=== PATIENT | female | born 1930 | race Caucasian/White ===

== ENCOUNTER 2018-08-25 12:14 | Inpatient (IN) ==
[2018-08-25] MEDS ORDERED: Morphine Sulfate Inj 2 MG/ML Vial IV.PUSH ONE (13:09)
[2018-08-25] MEDS ORDERED: Sodium Chlor 0.9% Inj 500 ML IV.SIG ONE (13:11)
--- NOTE | 2018-08-25 13:16 | ED ---
HPI General Chief Complaint: Fall Stated Complaint: fall Time Seen by Provider: 08/25/18 13:01 Source: patient Limitations: no limitations History of Present Illness HPI Narrative: 88-year-old female with PMH of HTN, HLD, a fib, pacemaker, implanted bladder stimulator, on Coumadin presents the ED via private vehicle for evaluation after fall. The patient states that she tripped while getting off a step stool in her kitchen, fell on her left hip, landing on a tile floor. She endorses hitting her head on a plastic bucket that was sitting nearby. She denies loss of consciousness. She has not been ambulatory since the accident. On presentation she complains of pain in the left hip. Pain is sharp and 10/10 with any attempted range of motion. Improved to 0/10 by immobility. The patient denies headache, dizziness, vision changes, chest pain , shortness of breath, nausea, vomiting. She denies previous injury to the left hip. Two friends helped the patient into the car. No treatment attempted before arrival. Related Data Home Medications Medication Instructions Recorded Confirmed amlodipine 5 mg PO DAILY 08/25/18 08/25/18 atorvastatin 20 mg PO DAILY 08/25/18 08/25/18 carvedilol 12.5 mg PO BID 08/25/18 08/25/18 enalapril maleate 20 mg PO BID 08/25/18 08/25/18 warfarin 5 mg PO DAILY 08/25/18 08/25/18 Allergies Allergy/AdvReac Type Severity Reaction Status Date / Time Sulfa (Sulfonamide Allergy Severe Rash Verified 08/25/18 14:23 Antibiotics) Review of Systems ROS: all other systems reviewed are negative PMFSH Medical History Medical History Afib (Acute) H/O: hysterectomy (Acute) High cholesterol (Acute) Hypertension (Acute) Pacemaker (Acute) Social History Social History Smoking Status: Former smoker How Often Do You Have a Drink Containing Alcohol: 4 or more times a week Recent Out of Country Travel within the Last 8 Weeks: No Immunization History Tetanus Immunization: <5 Years Exam Narrative Exam Narrative: GENERAL: Well-nourished, well-developed white female in no acute distress. Sitting up in the stretcher, chatting with a visitor at bedside. SKIN: Warm and dry. Thorough evaluation reveals no edema, ecchymosis, abrasion , or laceration of the skin. HEAD: Normocephalic. Atraumatic. No raccoon eyes or berman sign. No tenderness to palpation of the skull. No bony step-offs. No malocclusion of the teeth. EYES: No scleral icterus. No injection or drainage. PERRLA. EOMI. ENT: Hearing aids in place bilaterally. Nasal mucosa is moist. Oropharynx without erythema, edema or exudate. NECK: Supple, trachea midline. No JVD or lymphadenopathy. No midline tenderness to palpation. Patient retains full, active, painless range of motion of the neck. CARDIOVASCULAR: Regular rate and rhythm without murmurs, gallops, or rubs. 2+ DP and radial pulses bilaterally. RESPIRATORY: Breath sounds clear and equal bilaterally. No accessory muscle use. GASTROINTESTINAL: Abdomen soft, non-tender, nondistended. + Bowel sounds FOCUSED LLE: 2+ DP pulse. Tender to palpation of the anterior lateral hip and left groin. Pain elicited with internal and external hip rotation. Remaining ROM hip and knee testing deferred 2/2 pain. Patient is able to wiggle the toes and flex and extend the ankle. Neurovascularly intact distally. MUSCULOSKELETAL: No cyanosis, or edema. No other tenderness to palpation or limitations to range of motion of the joints of the upper and lower extremities bilaterally. NEUROLOGICAL: Awake and alert. Cranial nerves II through XII intact. Motor and sensory grossly within normal limits. 5/5 muscle strength in all muscle groups. Normal speech. BACK: Nontender without obvious deformity. No CVA tenderness. No midline tenderness. Course Initial Documented Vital Signs Temperature 97.2 F L 08/25/18 12:16 Pulse Rate 82 08/25/18 12:16 Respiratory Rate 16 08/25/18 12:16 Blood Pressure 177/74 H 08/25/18 12:16 Pulse Oximetry 98 08/25/18 12:16 Last Documented Vital Signs Temperature 97.2 F L 08/25/18 12:16 Pulse Rate 72 08/25/18 12:36 Respiratory Rate 17 08/25/18 14:28 Blood Pressure 173/91 H 08/25/18 12:36 Pulse Oximetry 98 08/25/18 12:36 Medical Decision Making MDM Narrative Medical decision making narrative: 88-year-old female with PMH of HTN, HLD, a fib, pacemaker, implanted bladder stimulator, on Coumadin presents the ED via private vehicle for evaluation after fall. Patient states that she fell off of a step stool, landing on the tile on her left hip. She did hit her head on a plastic bucket that was nearby but denies loss of consciousness. On presentation this is a pleasant, hard of hearing 88-year-old female in no acute distress. No evidence of trauma of the head. Neurologically intact. She does have tenderness to palpation of the anterolateral left hip and pain with attempted internal and external rotation. Neurovascularly intact distally. IV was established. Patient was administered 2 mg morphine, 4 mg Zofran and 500 mL 's normal saline. X-ray concerning for acute subcapital left hip fracture. Preoperative workup reveals white count of 11.8, hemoglobin 15.5. INR is 2.5. CMP shows mild elevation of the bilirubin at 1.4, otherwise unremarkable. CT of the brain without acute findings. I discussed the findings with the patient as well as the need for intervention by the orthopedist. Patient's agreeable to this plan. I spoke with , sienna. He request transfusion of 2 units of FFP, recheck INR, patient be made n.p.o. at midnight. Will hold Coumadin. I spoke with Dr. Sara Shaw who agrees to accept the patient to the medical service. Please see ortho and medicine notes for disposition. Medical Screen Exam Complete: Yes Emergency Medical Condition: Yes Differential Diagnosis Differential Diagnosis: Fall versus contusion versus fracture versus ICH versus other Lab Data Result diagrams: 08/25/18 14:00 08/25/18 14:00 Lab Results 08/25/18 08/25/18 08/25/18 Range/Units 14:00 14:00 14:00 WBC 11.8 H (4.0-11.0) th/mm3 RBC 4.63 (4.00-5.30) mil/mm3 Hgb 15.5 H (11.6-15.3) gm/dL Hct 44.4 (35.0-46.0) % MCV 95.9 (80.0-100.0) fL MCH 33.6 (27.0-34.0) pg MCHC 35.0 (32.0-36.0) % RDW 13.9 (11.6-17.2) % Plt Count 207 (150-450) th/mm3 MPV 8.4 (7.0-11.0) fL Neut % (Auto) 85.1 H (16.0-70.0) % Lymph % (Auto) 6.7 L (9.0-44.0) % [place] % (Auto) 6.8 (0.0-8.0) % Eos % (Auto) 1.2 (0.0-4.0) % Baso % (Auto) 0.2 (0.0-2.0) % Neut # (Auto) 10.1 H (1.8-7.7) th/mm3 Lymph # (Auto) 0.8 L (1.0-4.8) th/mm3 [place] # (Auto) 0.8 (0.0-0.9) th/mm3 Eos # (Auto) 0.1 (0.0-0.4) th/mm3 Baso # (Auto) 0.0 (0.0-0.2) th/mm3 WBC Differential . Differential Comment Auto diff final PT 25.4 H (9.8-11.6) sec INR 2.5 Ratio APTT 32.9 H (23.4-31.7) sec Sodium (136-145) meq/L Potassium (3.5-5.1) meq/L Chloride (98-107) meq/L Carbon Dioxide (21.0-32.0) meq/L Anion Gap (5-15) meq/L BUN (7-18) mg/dL Creatinine (0.50-1.00) mg/dL Estimated GFR (>89) mL/min Random Glucose (74-106) mg/dL Calcium (8.5-10.1) mg/dL Total Bilirubin (0.2-1.0) mg/dL AST (15-37) U/L ALT (10-53) U/L Alkaline Phosphatase (45-117) U/L Total Protein (6.4-8.2) g/dL Albumin (3.4-5.0) g/dL Blood Type A Positive Blood Type Recheck Required Antibody Screen Negative 08/25/18 Range/Units 14:00 WBC (4.0-11.0) th/mm3 RBC (4.00-5.30) mil/mm3 Hgb (11.6-15.3) gm/dL Hct (35.0-46.0) % MCV (80.0-100.0) fL MCH (27.0-34.0) pg MCHC (32.0-36.0) % RDW (11.6-17.2) % Plt Count (150-450) th/mm3 MPV (7.0-11.0) fL Neut % (Auto) (16.0-70.0) % Lymph % (Auto) (9.0-44.0) % [place] % (Auto) (0.0-8.0) % Eos % (Auto) (0.0-4.0) % Baso % (Auto) (0.0-2.0) % Neut # (Auto) (1.8-7.7) th/mm3 Lymph # (Auto) (1.0-4.8) th/mm3 [place] # (Auto) (0.0-0.9) th/mm3 Eos # (Auto) (0.0-0.4) th/mm3 Baso # (Auto) (0.0-0.2) th/mm3 WBC Differential Differential Comment PT (9.8-11.6) sec INR Ratio APTT (23.4-31.7) sec Sodium 141 (136-145) meq/L Potassium 4.0 (3.5-5.1) meq/L Chloride 108 H (98-107) meq/L Carbon Dioxide 26.9 (21.0-32.0) meq/L Anion Gap 6 (5-15) meq/L BUN 12 (7-18) mg/dL Creatinine 0.83 (0.50-1.00) mg/dL Estimated GFR 65 L (>89) mL/min Random Glucose 86 (74-106) mg/dL Calcium 8.8 (8.5-10.1) mg/dL Total Bilirubin 1.4 H (0.2-1.0) mg/dL AST 30 (15-37) U/L ALT 23 (10-53) U/L Alkaline Phosphatase 59 (45-117) U/L Total Protein 7.4 (6.4-8.2) g/dL Albumin 3.7 (3.4-5.0) g/dL Blood Type Blood Type Recheck Antibody Screen Imaging Data Radiologist's impression: Hip X-Ray 08/25/18 13:09 CONCLUSION: Acute subcapital fracture involving the left proximal femur. Chest X-Ray 08/25/18 13:52 CONCLUSION: 1. Mild perihilar and bibasilar streakiness is noted consistent with mild pulmonary vascular congestion, mild infiltrates and/or scattered atelectasis. 2. Cardiomegaly. 3. Degenerative changes and scoliosis of the thoracic spine. Discharge Plan Discharge Order Discharge Orders: ED Use Only Admit Order (Routine); Ordered 08/25/18 Ordered By: Camille Huerta Physicians Team ED Provider: Freddie Silva ED Midlevel Provider: Camille Huerta Primary Care Provider: Marlon Mejia Attending Provider: Cory Shaw Rxs /Orders / Referrals /Forms Prescriptions: No Action carvedilol 25 mg Tablet 12.5 mg PO BID RF: 0 atorvastatin 20 mg Tablet 20 mg PO DAILY RF: 0 enalapril maleate 20 mg Tablet 20 mg PO BID RF: 0 amlodipine 5 mg Tablet 5 mg PO DAILY RF: 0 warfarin 5 mg Tablet 5 mg PO DAILY RF: 0 Discharge Interventions Interventions: Vital Signs Last Done: 08/25/18 12:36 Status ED Status: Admitted Patient
[2018-08-25] MEDS ORDERED: Morphine Inj 4 MG/ML Vial IV.PUSH ONE (13:53)
--- NOTE | 2018-08-25 14:04 | XR ---
EXAM DATE: 08/25/2018 1:47 PM EST AGE/SEX: 88 years / Female INDICATIONS: Left hip pain. Patient fell off a step today. CLINICAL DATA: This is the patient's initial encounter. Patient reports that signs and symptoms have been present for 1 day and indicates a pain score of 10/10. MEDICAL/SURGICAL HISTORY: None. . Pain stimulator. COMPARISON: No prior exams available for comparison. FINDINGS: There is an acute subcapital fracture involving the left proximal femur. CONCLUSION: Acute subcapital fracture involving the left proximal femur. Electronically signed by: Cory Britton MD Board Certified Radiologist 08/25/2018 2:02 PM EST
--- NOTE | 2018-08-25 14:21 | XR ---
EXAM DATE: 08/25/2018 2:16 PM EST AGE/SEX: 88 years / Female INDICATIONS: Evaluate for communicable diseases, pneumonia, pneumothorax,. Pre-op surgery CLINICAL DATA: This is the patient's initial encounter. Patient reports that signs and symptoms have been present for 1 day and indicates a pain score of 0/10. MEDICAL/SURGICAL HISTORY: Cardiovascular disease. Myocardial infarction. Pacemaker. COMPARISON: POI, XR CHEST PA AND LAT, 07/20/2016. . FINDINGS: The heart is enlarged. Mild perihilar and bibasilar streakiness is noted consistent with mild pulmona ry vascular congestion, mild infiltrates and/or scattered atelectasis. Left subclavian pacemaker wire has its tip in the right ventricle. Degenerative changes and scoliosis of the thoracic spine are not ed. CONCLUSION: 1. Mild perihilar and bibasilar streakiness is noted consistent with mild pulmonary vascular congest ion, mild infiltrates and/or scattered atelectasis. 2. Cardiomegaly. 3. Degenerative changes and scoliosis of the thoracic spine. Electronically signed by: Cory Britton MD Board Certified Radiologist 08/25/2018 2:20 PM EST
[2018-08-25 14:28] LABS: Baso % (Auto) 0.2 % (0.0-2.0); Eos # (Auto) 0.1 th/mm3 (0.0-0.4); Eos % (Auto) 1.2 % (0.0-4.0); Hematocrit 44.4 % (35.0-46.0); Hemoglobin 15.5 gm/dL (11.6-15.3); Lymph # (Auto) 0.8 th/mm3 (1.0-4.8); Lymph % (Auto) 6.7 % (9.0-44.0); Mean Corpuscular Hemoglobin 33.6 pg (27.0-34.0); Mean Corpuscular Volume 95.9 fL (80.0-100.0); Mean Platelet Volume 8.4 fL (7.0-11.0); Mono # (Auto) 0.8 th/mm3 (0.0-0.9); Mono % (Auto) 6.8 % (0.0-8.0); Neut # (Auto) 10.1 th/mm3 (1.8-7.7); Neut % (Auto) 85.1 % (16.0-70.0); Platelet Count 207 th/mm3 (150-450); Red Blood Count 4.63 mil/mm3 (4.00-5.30); Red Cell Distribution Width 13.9 % (11.6-17.2); White Blood Count 11.8 th/mm3 (4.0-11.0)
[2018-08-25 14:47] LABS: Activated Partial Thrombo Time 32.9 sec (23.4-31.7); Alanine Aminotransferase 23 U/L (10-53); Albumin 3.7 g/dL (3.4-5.0); Anion Gap 6 meq/L (5-15); Aspartate Aminotransferase 30 U/L (15-37); Blood Urea Nitrogen 12 mg/dL (7-18); Calcium 8.8 mg/dL (8.5-10.1); Carbon Dioxide 26.9 meq/L (21.0-32.0); Chloride 108 meq/L (98-107); Glomerular Filtration Rate 65 mL/min (>89); Glucose,Random 86 mg/dL (74-106); INR 2.5 Ratio; Prothrombin Time 25.4 sec (9.8-11.6); Sodium 141 meq/L (136-145)
[2018-08-25 14:50] LABS: Alkaline Phosphatase 59 U/L (45-117); Total Protein 7.4 g/dL (6.4-8.2)
[2018-08-25 15:48] LABS: Bilirubin,Urine Negative (Negative); Clarity,Urine Clear (Clear); Color,Urine Yellow (Yellw/Straw); Glucose,Urine (UA) Negative (Negative); Leukocyte Esterase,Urine Negative (Negative); Nitrite,Urine Negative (Negative); Specific Gravity,Urine 1.011 (1.002-1.035)
--- NOTE | 2018-08-25 15:53 | CT ---
EXAM DATE: 08/25/2018 3:45 PM EST AGE/SEX: 88 years / Female INDICATIONS: Trauma, fell off step stool. CLINICAL DATA: This is the patient's initial encounter. Patient reports that signs and symptoms have been present for 1 day and indicates a pain score of 6/10. MEDICAL/SURGICAL HISTORY: Hypertension. Afib. Hysterectomy. RADIATION DOSE: 56.35 CTDI (mGy) COMPARISON: No prior exams available for comparison. TECHNIQUE: CT of the head without contrast. Using automated exposure control and adjustment of the mA and/or kV according to patient size, radiation dose was kept as low as reasonably achievable to ob tain optimal diagnostic quality images. DICOM format image data is available electronically for revi ew and comparison. FINDINGS: There is no evidence for intracranial hemorrhage, mass effect, mass lesions, edema, or extra-axial fl uid collections. The visualized bony structures appear intact. The ventricles are normal size for t he patient's age. There are no signs of acute infarction for technique. There is slight fat collect ion adjacent to the anterior falx 2 separate areas. CONCLUSION: Unremarkable study. Electronically signed by: Adeola Wolfe MD Board Certified Radiologist 08/25/2018 3:52 PM EST
[2018-08-25] MEDS ORDERED: Acetaminophen 325 MG Tablet PO PRN (16:29)
[2018-08-25] MEDS ORDERED: Bisacodyl 10 MG Supp RECTAL PRN (16:29)
--- NOTE | 2018-08-25 16:34 | P.CONOP ---
[facility] Orthopedics Consult Note - [facility] Consult date: 08/25/18 Chief complaint: Left hip fracture Narrative: This patient is an 88-year-old female who has a past medical history of hypertension, diabetes, hyperlipidemia, atrial fibrillation, pacemaker implantation, who is on Coumadin who presented to [facility] after she had a fall when she tripped getting off of a step stool in her kitchen. She noticed immediate pain about the left hip and had significant pain that she could not ambulate or stand. Her pain was 10 out of 10. It was improved with immobility. The patient presented to [place] and was found to have an impacted femoral neck fracture. I was called and we discussed the medical history with the nurse and we recommended reversal of her Coumadin. She takes Coumadin for her atrial fibrillation. She does follow-up with a review nurse routinely. Prior to this fall she had an episode of pain around the hip and this was treated with a cortisone injection by the primary care physician and she did well with this. She states that she lives alone and she does not require assistive devices for ambulation. Family history is positive for diabetes in the daughter. Note that the daughter is at the bedside. Review of Systems All other systems reviewed negative except as stated in [facility] PMFSH - History History Provided By: Patient - Medical History Medical History: Medical History (Last Reviewed 08/25/18 @ 16:29 by Anders Iraheta MD) Afib H/O: hysterectomy High cholesterol Hypertension Pacemaker - Social History I have reviewed the patient's Social History: Yes - Tobacco History Smoking Status: Former smoker - Alcohol History How Often Do You Have a Drink Containing Alcohol: 4 or more times a week - Travel History Recent Travel Out of the Country Within the Last 8 Weeks: No - Immunization History Tetanus Immunization: <5 Years Medications and Allergies Active Medications: Active Medications Sodium Chloride (Ns Flush) 2 ml IV.FLUSH UNSCH PRN PRN Reason: FLUSH AFTER USING IV ACCESS Allergies Allergy/AdvReac Type Severity Reaction Status Date / Time Sulfa (Sulfonamide Allergy Severe Rash Verified 08/25/18 14:23 Antibiotics) Home Medications Medication Instructions Recorded Confirmed Type amlodipine 5 mg PO DAILY 08/25/18 08/25/18 History atorvastatin 20 mg PO DAILY 08/25/18 08/25/18 History carvedilol 12.5 mg PO BID 08/25/18 08/25/18 History enalapril maleate 20 mg PO BID 08/25/18 08/25/18 History warfarin 5 mg PO DAILY 08/25/18 08/25/18 History Exam Vital signs: Vital Signs 08/25/18 12:16 08/25/18 12:36 08/25/18 14:28 Temperature 97.2 F L Pulse Rate 82 72 Respiratory Rate 16 17 17 Blood Pressure 177/74 H 173/91 H Pulse Oximetry 98 98 Intake & Output 08/24/18 08/25/18 08/25/18 18:59 06:59 18:59 Intake Total 500 / 500 Balance 500 / 500 Weight 58.967 kg Intake: IV 500 / 500 NS Inj 500 ML @ Wide Open IV. 500 / 500 SIG BOLUS ONE Rx#:[id number] Narrative: GENERAL: The patient is awake, alert and oriented x3. The patient is no significant distress. Her daughter is at the bedside PSYCHIATRIC: Normal affect, insight, and judgment. HEENT: Head is atraumatic. Oropharynx is moist. Extraocular muscles are intact. NECK: Non-tender and supple. LUNGS: No audible wheezing. He has normal inspiratory effort with no signs of dyspnea HEART: Irregular rate and rhythm. ABDOMEN: Soft, nontender, and nondistended. BACK: No CVA tenderness. EXTREMITIES/SKIN/NEURO/VASCULAR: The left hip has some minimal shortening. There is no significant swelling about the hip. There were no wounds anterior or laterally. The compartments were soft. Her calf has no tenderness. She may have some trace edema about the bilateral lower extremities. She has good pulses distally in both feet. The bilateral upper extremities have good active range of motion with no tenderness about the bony prominences. Results - Labs Result Diagrams: 08/25/18 14:00 08/25/18 14:00 Labs: Laboratory Results - last 24 hr 08/25/18 08/25/18 08/25/18 14:00 14:00 14:00 WBC 11.8 H RBC 4.63 Hgb 15.5 H Hct 44.4 MCV 95.9 MCH 33.6 MCHC 35.0 RDW 13.9 Plt Count 207 MPV 8.4 Neut % (Auto) 85.1 H Lymph % (Auto) 6.7 L [place] % (Auto) 6.8 Eos % (Auto) 1.2 Baso % (Auto) 0.2 Neut # (Auto) 10.1 H Lymph # (Auto) 0.8 L [place] # (Auto) 0.8 Eos # (Auto) 0.1 Baso # (Auto) 0.0 WBC Differential . Differential Comment Auto diff final PT 25.4 H INR 2.5 APTT 32.9 H Sodium Potassium Chloride Carbon Dioxide Anion Gap BUN Creatinine Estimated GFR Random Glucose Calcium Total Bilirubin AST ALT Alkaline Phosphatase Total Protein Albumin Urine Color Urine Clarity Urine pH Ur Specific [place] Urine Protein Urine Glucose (UA) Urine Ketones Urine Occult Blood Urine Nitrate Urine Bilirubin Urine Urobilinogen Ur Leukocyte Esterase Ur Microscopic Review Blood Type A Positive Blood Type Recheck Required Antibody Screen Negative 08/25/18 08/25/18 14:00 15:00 WBC RBC Hgb Hct MCV MCH MCHC RDW Plt Count MPV Neut % (Auto) Lymph % (Auto) [place] % (Auto) Eos % (Auto) Baso % (Auto) Neut # (Auto) Lymph # (Auto) [place] # (Auto) Eos # (Auto) Baso # (Auto) WBC Differential Differential Comment PT INR APTT Sodium 141 Potassium 4.0 Chloride 108 H Carbon Dioxide 26.9 Anion Gap 6 BUN 12 Creatinine 0.83 Estimated GFR 65 L Random Glucose 86 Calcium 8.8 Total Bilirubin 1.4 H AST 30 ALT 23 Alkaline Phosphatase 59 Total Protein 7.4 Albumin 3.7 Urine Color Yellow Urine Clarity Clear Urine pH 6.0 Ur Specific [place] 1.011 Urine Protein Negative Urine Glucose (UA) Negative Urine Ketones Trace H Urine Occult Blood Negative Urine Nitrate Negative Urine Bilirubin Negative Urine Urobilinogen Less than 2 Ur Leukocyte Esterase Negative Ur Microscopic Review Not Reportable Blood Type Blood Type Recheck Antibody Screen INR is 2.5 - Diagnostic results Imaging: Impressions Head CT 08/25/18 13:09 CONCLUSION: Unremarkable study. Hip X-Ray 08/25/18 13:09 CONCLUSION: Acute subcapital fracture involving the left proximal femur. I have reviewed the images for this radiology study. I agree with the interpretation given by the radiologist. Chest X-Ray 08/25/18 13:52 CONCLUSION: 1. Mild perihilar and bibasilar streakiness is noted consistent with mild pulmonary vascular congestion, mild infiltrates and/or scattered atelectasis. 2. Cardiomegaly. 3. Degenerative changes and scoliosis of the thoracic spine. Assessment and Plan - Assessment and Plan 88-year-old female with history of atrial fibrillation status post fall with left hip nondisplaced valgus impacted femoral neck fracture. We discussed that this is a serious condition effecting this patient's extremity. Nonoperative and operative options were discussed and reviewed. Potential consequences of both of these options were reviewed. I would recommend surgical management for this condition. Nonoperative management does have significant chance of displacement of the fracture which ultimately would lead to the need to have a much more extensive surgery such as a hip replacement. We did discuss that sometimes with closed reduction and percutaneous screw fixation there can be complications such as displacement of the hardware, avascular necrosis, or continued pain or migration of the hardware which could require further surgery such as removal of screws and conversion to hip replacement. The patient is currently on Coumadin with an INR of 2.5 because of her atrial fibrillation. I have discussed with the admitting physician and also with the ER nurse that I would recommend reversal of the anticoagulation with FFP. Postoperatively I would expect that the patient would be able to go back onto her Coumadin for DVT prophylaxis and for her atrial fibrillation. The patient would like to move forward with urgent surgical management for this condition. The surgery will consist of a left hip closed reduction and percutaneous screw fixation. This is surgery should be considered non-elective , given that this patient presented emergently to the hospital, and the decision to proceed with surgery was derived from this presentation. Significantly delaying surgery (other than for medical clearance) has the potential to adversely effect the outcome for this patient's extremity. Management of pain associated with surgery will likely require the use of parental controlled substances. The risks and benefits of surgical management have been discussed in detail. The risks of surgery include, but are not limited to, injury to nerves, blood vessels, bleeding, infection, non-healing; loss of range on motion, dysfunction or weakness of the associated joints; blood clots, pneumonia, stroke, heart attack, and . - Attending Attestation Attending Attestation: A mid level provider in my office, nurse practitioner or PA, may see this patient on a follow up basis and continue to implement the plan including: starting or adjusting medications, injections of muscle, tendons, bursa or joints, cast application, orthotic or brace application, physical therapy, further radiographic studies including X-ray, MRI, CT, ultrasound or bone scan , vascular studies, neurological studies, or other specialist consultations, and proceeding with surgical management as appropriate.
--- NOTE | 2018-08-25 16:47 | P.HPIM ---
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 Patient reports that she was cleaning her home standing on a step stool when she lost her balance and fell. Patient denied prodromal symptoms of chest pain, shortness of breath, palpitations, nausea, diaphoresis, headache, dizziness, vision change, or acute issue prior to the fall. Patient reports that she fell and hit her buttocks and her left side of her hip. Patient also reports that she slightly hit her head on a plastic wash basin when she fell. Patient denied seizure history. Fall was unwitnessed at the time but daughter was present to provide some collateral of events leading to hospitalization. In emergency department patient underwent hip x-ray which showed acute subcapital fracture involving the left proximal femur. Orthopedics was consulted. Medicine consulted as well. Patient INR found to be 2.5. History as per patient. Allergies: Sulfur (patient unsure of exact reaction as she had the medication many years ago was ( Social history: Retired, former smoker of 1 pack/day quit in 1955 smoked for less than 10 years, drinks 1 glass of wine occasionally with television, lives alone in her residence. Family history: Noncontributory Medications: Coumadin 5 mg daily, Coreg 12.5 mg twice daily, amlodipine 5 mg daily, enalapril 20 mg every 12 hours, atorvastatin 20 mg at bedtime Surgical history: Hysterectomy, bladder stimulator, permanent pacemaker status post bradycardia, bladder lift, vaginal polyp removal Diagnosis (1) Atrial fibrillation: (2) Hip fracture: (3) Pacemaker: Inpatient Certification Inpatient Certification: I certify that the inpatient services were ordered in accordance with Medicare regulations governing the order. This includes certification that hospital inpatient services are reasonable and necessary and in the case of services not specified as inpatient-only under 42 CFR 419.22(n), that they are appropriately provided as inpatient services in accordance to with the 2-midnight benchmark under 43 CFR 412.3(e) Estimated Total Length of Stay (Days): 3 Plans for Post Hospital Care: Not yet determined Review of Systems Review of Systems: all other systems reviewed are negative PMFSH Medical History Medical History Afib (Acute) H/O: hysterectomy (Acute) High cholesterol (Acute) Hypertension (Acute) Pacemaker (Acute) Social History Social History Smoking Status: Former smoker How Often Do You Have a Drink Containing Alcohol: 4 or more times a week Recent Out of Country Travel within the Last 8 Weeks: No Immunization History Tetanus Immunization: <5 Years Medications and Allergies Allergies Allergy/AdvReac Type Severity Reaction Status Date / Time Sulfa (Sulfonamide Allergy Severe Rash Verified 08/25/18 14:23 Antibiotics) Home Medications Medication Instructions Recorded Confirmed Type amlodipine 5 mg PO DAILY 08/25/18 08/25/18 History atorvastatin 20 mg PO DAILY 08/25/18 08/25/18 History carvedilol 12.5 mg PO BID 08/25/18 08/25/18 History enalapril maleate 20 mg PO BID 08/25/18 08/25/18 History warfarin 5 mg PO DAILY 08/25/18 08/25/18 History Active Medications: Active Medications Acetaminophen (Tylenol) 650 mg PO Q4H PRN PRN Reason: Temp > 100.4 Al Hydroxide/Mg Hydroxide (Milk Of Magnesia Liq) 30 ml PO Q12H PRN PRN Reason: Mild Constipation Bisacodyl (Dulcolax Supp) 10 mg RECTAL DAILY PRN PRN Reason: SEVERE CONSITIPATION Furosemide (Lasix Inj) 40 mg IV.PUSH ONCE ONE Stop: 08/25/18 16:33 Lactulose (Lactulose Liq) 30 ml PO DAILY PRN PRN Reason: SEVERE CONSITIPATION Ondansetron HCl (Zofran Inj) 4 mg IV.PUSH Q6H PRN PRN Reason: NAUSEA OR VOMITING Senna/Docusate Sodium (Flores-Colace) 1 tab PO BID SABINE Sennosides (Senokot) 17.2 mg PO Q12H PRN PRN Reason: Moderate Constipation Sodium Chloride (Ns Flush) 2 ml IV.FLUSH UNSCH PRN PRN Reason: FLUSH AFTER USING IV ACCESS Sodium Chloride (Ns Flush) 2 ml IV.FLUSH PRN PRN PRN Reason: FLUSH AFTER USING IV ACCESS Sodium Chloride (Ns Flush) 2 ml IV.FLUSH BID SABINE Physical Exam Vital signs: Vital Signs 08/25/18 12:16 08/25/18 12:36 08/25/18 14:28 Temperature 97.2 F L Pulse Rate 82 72 Respiratory Rate 16 17 17 Blood Pressure 177/74 H 173/91 H Pulse Oximetry 98 98 Intake & Output 08/24/18 08/25/18 08/25/18 18:59 06:59 18:59 Intake Total 500 / 500 Balance 500 / 500 Weight 58.967 kg Intake: IV 500 / 500 NS Inj 500 ML @ Wide Open IV. 500 / 500 SIG BOLUS ONE Rx#:[id number] general: No acute distress, conversational HEENT: EOMI Cardiovascular: S1/S2. No murmur noted. Irregularly irregular Respiratory: Very faint scattered rhonchi at the base of the lung otherwise no wheezing, rales, or rhonchi. Gastrointestinal: Soft, nontender, nondistended, no guarding or rebound Muscular skeletal: Tender to palpation over left hip, no bruising appreciated, right hip unremarkable Extremity: 2+ bounding bilateral pulses and dorsalis pedis. Trace 1+ edema near the ankle, no calf tenderness Urinary Catheter Management Indwelling Urethral Catheter: Cath placed during this visit: yes Reason for continuing: Other continuation reason Insertion date: 08/25/18 Insertion time: 14:00 Results Labs CBC & Chem 7: 08/25/18 14:00 08/25/18 14:[address] 08/25/18 13:09 CONCLUSION: Unremarkable study. Hip X-Ray 08/25/18 13:09 CONCLUSION: Acute subcapital fracture involving the left proximal femur. Chest X-Ray 08/25/18 13:52 CONCLUSION: 1. Mild perihilar and bibasilar streakiness is noted consistent with mild pulmonary vascular congestion, mild infiltrates and/or scattered atelectasis. 2. Cardiomegaly. 3. Degenerative changes and scoliosis of the thoracic spine. Caprini VTE Risk Assessment Caprini VTE Risk Assessment: No/Low Risk (score <= 1) Caprini Risk Assessment Model: Point Value = 1 Point Value = 2 Point Value = 3 Point Value = 5 Age 41-60 Minor surgery BMI > 25 kg/m2 Swollen legs Varicose veins or History of unexplained or recurrent spontaneous Oral contraceptives or hormone replacement Sepsis (< 1 month) Serious lung disease, including pneumonia (< 1 month) Abnormal pulmonary function Acute myocardial infarction Congestive heart failure (< 1 month) History of inflammatory bowel disease Medical patient at bed rest Age 61-74 Arthroscopic surgery Major open surgery (> 45 min) Laparoscopic surgery (> 45 min) Malignancy Confined to bed (> 72 hours) Immobilizing plaster cast Central venous access Age >= 75 History of VTE Family history of VTE Factor V Leiden Prothrombin [id number] Lupus anticoagulant Anticardiolipin antibodies Elevated serum homocysteine Heparin-induced thrombocytopenia Other congenital or acquired thrombophilia Stroke (< 1 month) Elective arthroplasty Hip, pelvis, or leg fracture Acute spinal cord injury (< 1 month) Prophylaxis Regimen: Total Risk Factor Score Risk Level Prophylaxis Regimen 0-1 Low Early ambulation 2 Moderate Order ONE of the following: *Sequential Compression Device (SCD) *Heparin 5000 units SQ BID 3-4 Higher Order ONE of the following medications: *Heparin 5000 units SQ TID *Enoxaparin/Lovenox 40 mg SQ daily (WT < 150 kg, CrCl > 30 mL/min) *Enoxaparin/Lovenox 30 mg SQ daily (WT < 150 kg, CrCl > 10-29 mL/min) *Enoxaparin/Lovenox 30 mg SQ BID (WT < 150 kg, CrCl > 30 mL/min) AND/OR *Sequential Compression Device (SCD) 5 or more Highest Order ONE of the following medications: *Heparin 5000 units SQ TID (Preferred with Epidurals) *Enoxaparin/Lovenox 40 mg SQ daily (WT < 150 kg, CrCl > 30 mL/min) *Enoxaparin/Lovenox 30 mg SQ daily (WT < 150 kg, CrCl > 10-29 mL/min) *Enoxaparin/Lovenox 30 mg SQ BID (WT < 150 kg, CrCl > 30 mL/min) AND *Sequential Compression Device (SCD) Assessment and Plan (1) Atrial fibrillation: Code(s): I48.91 - Unspecified atrial fibrillation Status: Acute (2) Hip fracture: Code(s): S72.009A - Fracture of unspecified part of neck of unspecified femur, initial encounter for closed fracture Status: Acute (3) Pacemaker: Code(s): Z95.0 - Presence of cardiac pacemaker Status: Acute Plan Patient is a pleasant 88-year-old female past medical history of atrial fibrillation on Coumadin, pacemaker placement status post bradycardia who presents status post mechanical fall at residence found to have acute subcapital fracture involving the left proximal femur. Orthopedics: Acute subcapital fracture of the left proximal femur Orthopedics consulted and recommendations to be appreciated Orthopedics prefers not to heparinize patient at this time after reversal of INR. Will reverse elevated INR of 2.5 using fresh frozen plasma and repeat INR in morning Patient should be n.p.o. at midnight Patient will need physical therapy evaluation following surgery Postoperative supplemental oxygen Postoperative incentive spirometry - DuoNeb as needed shortness of breath Cardiac: Atrial fibrillation on Coumadin, permanent pacemaker status post bradycardia Monitor on telemetry Hold Coumadin for elevated INR. Goal is to be less than 1.8 by the morning of 08/26 2 units fresh frozen plasma stat Echo to rule out any valvular pathology prior to surgery Chest x-ray reviewed and small streak of what could be atelectasis versus fluid. Supplemental oxygen to maintain O2 saturation greater than 92%. Continue Coreg in perioperative period and may continue amlodipine. Hold AMANDA inhibitor for now. Suspect that with patient being on enalapril and beta- merlin that some pre-existing cardiomyopathy indeed exists. Continue atorvastatin 20 mg at bedtime CODE STATUS: Full code DVT prophylaxis: Coumadin, SCDs when INR is reversed. Anticoagulation will be resumed after surgery as per orthopedics Disposition: Medical search unit. Anticipate surgery on 08/26. Diet: Cardiac. N.p.o. at midnight
[2018-08-25] MEDS ORDERED: Influenza (Quadrivalent) Vaccine 0.5 ML Syringe IM ONE ×2 (17:30→19:30)
[2018-08-25] MEDS: Senna/Docusate Sodium 8.6/50 MG Tablet PO SCH (20:45)
[2018-08-26] MEDS ORDERED: Chlorhexidine Gluconate 2% 1 Pack (2 Cloths) TOPICAL ONE (01:50)
[2018-08-26] MEDS ORDERED: Sodium Chlor 0.9% Inj 500 ML IV.SIG SCH (02:00)
[2018-08-26 07:01] LABS: INR 1.7 Ratio; Prothrombin Time 17.4 sec (9.8-11.6)
[2018-08-26 07:15] LABS: Alanine Aminotransferase 24 U/L (10-53); Albumin 3.2 g/dL (3.4-5.0); Anion Gap 5 meq/L (5-15); Aspartate Aminotransferase 23 U/L (15-37); Blood Urea Nitrogen 10 mg/dL (7-18); Calcium 8.6 mg/dL (8.5-10.1); Carbon Dioxide 31.7 meq/L (21.0-32.0); Chloride 104 meq/L (98-107); Glomerular Filtration Rate 56 mL/min (>89); Glucose,Random 97 mg/dL (74-106); Potassium 3.6 meq/L (3.5-5.1); Sodium 141 meq/L (136-145)
[2018-08-26 07:16] LABS: Alkaline Phosphatase 48 U/L (45-117); Total Protein 6.7 g/dL (6.4-8.2)
[2018-08-26] MEDS ORDERED: Non-Formulary Drug (Enalapril Maleate [Enalapril Maleate] 20 MG) PO SCH (09:00)
[2018-08-26] MEDS: Carvedilol 12.5 MG Tablet PO SCH ×2 (09:33→20:15)
[2018-08-26] MEDS: Senna/Docusate Sodium 8.6/50 MG Tablet PO SCH ×2 (09:33→20:15)
[2018-08-26] MEDS: amLODIPine 5 MG Tablet PO SCH (09:33)
--- NOTE | 2018-08-26 09:44 | P.PNOP ---
Subjective Interval history: The patient's pain is tolerated for the hip. We are still pending medical clearance which is actively being worked on. Physical Exam Vital signs: Vital Signs 08/25/18 12:16 08/25/18 12:36 08/25/18 14:28 Temperature 97.2 F L Pulse Rate 82 72 Respiratory Rate 16 17 17 Blood Pressure 177/74 H 173/91 H Pulse Oximetry 98 98 08/25/18 16:20 08/25/18 16:29 08/25/18 18:20 Temperature 98.8 F Pulse Rate 89 68 81 Respiratory Rate 17 Blood Pressure 184/76 H 146/78 H 154/69 H Pulse Oximetry 98 95 08/25/18 18:31 08/25/18 19:53 08/25/18 20:00 Temperature 99.2 F Pulse Rate 73 69 Respiratory Rate 17 Blood Pressure 130/64 Pulse Oximetry 95 95 08/25/18 20:09 08/25/18 20:12 08/25/18 21:54 Temperature 97.9 F 98.7 F Pulse Rate 70 69 Respiratory Rate 17 16 Blood Pressure 155/65 H 124/60 Pulse Oximetry 94 L 93 L 08/25/18 22:18 08/25/18 22:50 08/25/18 23:29 Temperature 98.7 F 98.7 F 98.4 F Pulse Rate 70 68 70 Respiratory Rate 16 16 17 Blood Pressure 126/61 124/64 120/57 L Pulse Oximetry 93 L 93 L 95 08/26/18 00:00 08/26/18 00:54 08/26/18 02:11 Temperature 96.7 F L Pulse Rate 69 69 Respiratory Rate 16 16 Blood Pressure 130/60 Pulse Oximetry 93 L 08/26/18 04:23 08/26/18 06:00 Temperature 97.8 F Pulse Rate 70 Respiratory Rate 19 Blood Pressure 143/68 H Pulse Oximetry 95 94 L Intake & Output 08/25/18 08/26/18 08/26/18 18:59 06:59 18:59 Intake Total 500 / 500 720 / 720 Output Total 1700 / 1700 875 / 875 Balance -1200 / -1200 -155 / -155 Weight 58.967 kg 62 kg Intake: IV 500 / 500 NS Inj 500 ML @ Wide Open IV. 500 / 500 SIG BOLUS ONE Rx#:[id number] Oral 720 / 720 Intake (Blood Product) Amt 0 / 0 Plasma Thawed 5 Day Acda Unit 0 / 0 [id number] Plasma Thawed 5 Day Cp2d Unit 0 / 0 [id number] Output: Urine Amount (Catheter) 1700 / 1700 875 / 875 Indwelling Urethral Catheter 1700 / 1700 875 / 875 Other: Date of Last Bowel Movement 08/25/18 08/25/18 Weight On Admission 58.967 kg Narrative: Left hip does not have significant swelling. Patient's family is at the bedside. Patient is awake alert and oriented x3. - Urinary Catheter Management Indwelling Urethral Catheter Cath placed during this visit: yes Reason for continuing: Other continuation reason Insertion date: 08/25/18 Insertion time: 14:00 Results - Labs CBC & Chem 7: 08/25/18 14:00 08/26/18 06:29 Laboratory Results - last 24 hr 08/25/18 08/25/18 08/25/18 14:00 14:00 14:00 WBC 11.8 H RBC 4.63 Hgb 15.5 H Hct 44.4 MCV 95.9 MCH 33.6 MCHC 35.0 RDW 13.9 Plt Count 207 MPV 8.4 Neut % (Auto) 85.1 H Lymph % (Auto) 6.7 L Izard % (Auto) 6.8 Eos % (Auto) 1.2 Baso % (Auto) 0.2 Neut # (Auto) 10.1 H Lymph # (Auto) 0.8 L Izard # (Auto) 0.8 Eos # (Auto) 0.1 Baso # (Auto) 0.0 WBC Differential . Differential Comment Auto diff final PT 25.4 H INR 2.5 APTT 32.9 H Sodium Potassium Chloride Carbon Dioxide Anion Gap BUN Creatinine Estimated GFR Random Glucose Calcium Total Bilirubin AST ALT Alkaline Phosphatase Total Protein Albumin Urine Color Urine Clarity Urine pH Ur Specific Avant Urine Protein Urine Glucose (UA) Urine Ketones Urine Occult Blood Urine Nitrate Urine Bilirubin Urine Urobilinogen Ur Leukocyte Esterase Ur Microscopic Review Blood Type A Positive Blood Type Recheck Required Antibody Screen Negative Blood Bank Comment 08/25/18 08/25/18 08/25/18 14:00 15:00 16:38 WBC RBC Hgb Hct MCV MCH MCHC RDW Plt Count MPV Neut % (Auto) Lymph % (Auto) Izard % (Auto) Eos % (Auto) Baso % (Auto) Neut # (Auto) Lymph # (Auto) Izard # (Auto) Eos # (Auto) Baso # (Auto) WBC Differential Differential Comment PT INR APTT Sodium 141 Potassium 4.0 Chloride 108 H Carbon Dioxide 26.9 Anion Gap 6 BUN 12 Creatinine 0.83 Estimated GFR 65 L Random Glucose 86 Calcium 8.8 Total Bilirubin 1.4 H AST 30 ALT 23 Alkaline Phosphatase 59 Total Protein 7.4 Albumin 3.7 Urine Color Yellow Urine Clarity Clear Urine pH 6.0 Ur Specific Avant 1.011 Urine Protein Negative Urine Glucose (UA) Negative Urine Ketones Trace H Urine Occult Blood Negative Urine Nitrate Negative Urine Bilirubin Negative Urine Urobilinogen Less than 2 Ur Leukocyte Esterase Negative Ur Microscopic Review Not Reportable Blood Type Blood Type Recheck Antibody Screen Blood Bank Comment 08/26/18 08/26/18 06:29 06:29 WBC RBC Hgb Hct MCV MCH MCHC RDW Plt Count MPV Neut % (Auto) Lymph % (Auto) Izard % (Auto) Eos % (Auto) Baso % (Auto) Neut # (Auto) Lymph # (Auto) Izard # (Auto) Eos # (Auto) Baso # (Auto) WBC Differential Differential Comment PT 17.4 H INR 1.7 APTT Sodium 141 Potassium 3.6 Chloride 104 Carbon Dioxide 31.7 Anion Gap 5 BUN 10 Creatinine 0.94 Estimated GFR 56 L Random Glucose 97 Calcium 8.6 Total Bilirubin 1.9 H AST 23 ALT 24 Alkaline Phosphatase 48 Total Protein 6.7 D Albumin 3.2 L Urine Color Urine Clarity Urine pH Ur Specific Avant Urine Protein Urine Glucose (UA) Urine Ketones Urine Occult Blood Urine Nitrate Urine Bilirubin Urine Urobilinogen Ur Leukocyte Esterase Ur Microscopic Review Blood Type Blood Type Recheck Antibody Screen Blood Bank Comment - Imaging Impressions Head CT 08/25/18 13:09 CONCLUSION: Unremarkable study. Hip X-Ray 08/25/18 13:09 CONCLUSION: Acute subcapital fracture involving the left proximal femur. Chest X-Ray 08/25/18 13:52 CONCLUSION: 1. Mild perihilar and bibasilar streakiness is noted consistent with mild pulmonary vascular congestion, mild infiltrates and/or scattered atelectasis. 2. Cardiomegaly. 3. Degenerative changes and scoliosis of the thoracic spine. Assessment and Plan - Assessment and Plan 88-year-old female with history of atrial fibrillation status post fall with left hip nondisplaced valgus impacted femoral neck fracture. This patient is status post 2 units of FFP. Her INR has come down from 2.5 to 1.7 which would be in an acceptable range to move forward with a percutaneous screw fixation today. However, I did discuss with Dr. Shaw the results of her EKG which were concerning for possible acute [place]. Dr. Shaw is initiating a workup for possible [place]. He also has contacted the inserting machine operator Dr. Romero. The inserting machine operator is planning to come see the patient soon. The patient at this point is not medically cleared to move forward with surgery due to this concern. If she does get medically cleared later today it is possible he might be able to move forward with surgery later. We would also have to make some plans as far as her anticoagulation depending on the results of the evaluation of the inserting machine operator.
--- NOTE | 2018-08-26 11:59 | MB ---
cc: Cesar Torres MD,Charlotte Brambila MD DATE: 08/26/2018 REASON FOR CONSULTATION: Clearance for hip surgery. HISTORY OF PRESENT ILLNESS: Mrs. Velasco is an 88-year-old female with history of apparent atrial flutter, on chronic anticoagulation, high blood pressure. The patient is followed as an outpatient by Dr. Ayala, very active at home. She was stepping on a step stool, lost balance, and fell and she has a hip fracture. She was brought to the emergency room. She was admitted, evaluated by internal medicine, and I was called for evaluation for clearance for surgery. The chart was reviewed. The patient was evaluated. ALLERGIES: SULFA. SOCIAL HISTORY: Negative for smoking. Drinks occasionally. FAMILY HISTORY: Noncontributory to her current medical condition. MEDICATIONS: 1. Coumadin 5 mg a day. 2. Coreg 12.5 mg twice a day. 3. Amlodipine 5 mg a day. 4. Enalapril 20 mg twice a day. 5. Atorvastatin 20 mg a day. REVIEW OF SYSTEMS: The patient reveals no chest pain, no chest discomfort, no shortness of breath, no vomiting, no fever. PHYSICAL EXAMINATION: GENERAL: Alert, fully oriented. VITAL SIGNS: Blood pressure is a bit high today at 167/72, pulse 69, respiratory rate 18. LUNGS: Ventilated. CARDIOVASCULAR: S1, S2. Regular. No gallop. ABDOMEN: Soft. No mass. EXTREMITIES: Left hip with immobilization. LABORATORY DATA: Electrocardiogram this morning indicated atrial flutter, poor R-wave progression with controlled heart rate. The patient may be V pacing at this point. Previous electrocardiogram indicated sinus rhythm. The last one we have on file was in 2004. No significant ST changes. LABORATORY DATA: Hemoglobin 15.5, white blood cells 11.8, INR 1.7, platelets 207. Creatinine is 0.94, potassium 3.6. ASSESSMENT AND RECOMMENDATIONS: Mrs. Velasco is stable. She is very active at home. She does all her basic activities and cleaning her house by herself. She never complained about chest pain or shortness of breath. She is in atrial flutter currently. Apparently, she is V pacing in the electrocardiogram. There are electrocardiographic changes between 2004 and now. That should not be an issue to delay the surgery. My recommendation is to proceed with hip surgery. The pacemaker should be interrogated post-procedure. I will follow her during hospitalization if necessary. Case discussed with Dr. Shaw and the patient's family. MD ANH Jaramillo/ts , 11:24 AM , 11:35 AM
[2018-08-26] MEDS ORDERED: Tranexamic Acid Inj 1,000 MG/10 ML Ampul ONE (13:04)
[2018-08-26] MEDS ORDERED: SODIUM CHLOR 0.9% IV.SIG ONE (13:18)
[2018-08-26] MEDS ORDERED: TRANEXAMIC ACID IV.SIG ONE (13:18)
[2018-08-26] MEDS ORDERED: ceFAZolin Inj 1 GM in Sodium Chlor 0.9% Inj 100 ML IV.SIG ONE (13:19)
[2018-08-26] MEDS ORDERED: Aluminum/Magnesium/Simethacone Susp 30 ML UDC PO PRN (13:55)
[2018-08-26] MEDS ORDERED: Post-op Orders (for Pharmacy) OTHER STA (13:55)
[2018-08-26] MEDS ORDERED: Morphine Inj 4 MG/ML Vial IV.PUSH PRN (13:55)
--- NOTE | 2018-08-26 14:01 | P.OP ---
Preoperative Diagnosis: Left hip valgus impacted subcapital femoral neck fracture Postoperative Diagnosis: Same Date of procedure: 08/26/18 Anesthesia: GETA Surgeon: Anders Iraheta MD Vice President [employer]: MAXIMO Baires The surgical procedure was assisted by my Advanced Registered Nurse Practitioner. My ACCORDION REPAIRER presence was necessary throughout this case for the manipulation and positioning of the surgical extremity. My ACCORDION REPAIRER was assisting me throughout the duration of this procedure. The skill set of an Advance Registered Nurse Practitioner was medically necessary to complete this procedure. During the surgical case, the surgical clinical reviewer was working at the back table and the Advance Registered Nurse Practitioner was directly assisting me. Operation and Findings: Note that this patient was medically cleared and also cleared by cardiology prior to moving forward with surgery. Additionally her elevated INR was reversed prior to surgery. Estimated blood loss: 15 cc Implants: [employer]ynthe[employer] stainless steel cannulated screws, 7.3. The patient received intravenous vancomycin and Ancef. After the appropriate anesthesia was administered, the patient was transferred to the fracture table. The fracture was anatomically reduced under fluoroscopic imaging. The hip was prepped and draped in usual sterile fashion. Using fluoroscopic guidance we established a small incision on the lateral aspect of the hip. We then incised through the deep fascia as well. We placed three threaded guidewires in a triangular configuration, starting laterally with the tips of the guidewires placed within the femoral head. We confirmed that there was no intra-articular penetration of the tips of these guidewires. The lateral aspect of the guidewires were kept proximal to the lower portion of the lesser trochanter to reduce the risk of periprosthetic fracture. We measured the appropriate depth for the screws and then drilled the cortex laterally. The 3 screws were then placed within the bone. The screws purchase into the bone was considered to be excellent. Note that the first 2 screws were short thread which were the bottom 2 screws. We were able to obtain excellent compression through these and then we used a longer thread for the third 1 We took final fluoroscopic imaging which revealed that the fracture remained good position. The hardware was in good position as well. The wounds were thoroughly irrigated and then closed with a 0 Vicryl followed by 2-0 Vicryl and rosie. The postoperative plan is to start toe-touch weightbearing. Additionally, we will initiate postoperative antibiotics for 24 hours along with DVT prophylaxis consisting of early mobilization, SCDs, compression stockings, and resumption of Coumadin.
[2018-08-26] MEDS ORDERED: fentaNYL Citrate Inj 100 MCG/2 ML Ampul ONE (14:02)
--- NOTE | 2018-08-26 14:41 | XR ---
EXAM DATE: 08/26/2018 2:36 PM EST AGE/SEX: 88 years / Female INDICATIONS: Left hip pinning. CLINICAL DATA: This is the patient's initial encounter. Patient reports that signs and symptoms have been present for 1 day and indicates a pain score of Nonresponsive. MEDICAL/SURGICAL HISTORY: Non-responsive. Non-responsive. COMPARISON: [facility], HIP LEFT W AP PELVIS 2V, 08/25/2018. . FINDINGS: Two-view intraoperative OEC images of the left hip show interval open reduction and internal fixation of the previously noted subcapital fracture with 3 osseous screws. Fracture fragments are in adequat e anatomic alignment. CONCLUSION: Successful open reduction and internal fixation of left subcapital fracture as above. Electronically signed by: Taj Salmon MD Board Certified Radiologist 08/26/2018 2:39 PM EST
--- NOTE | 2018-08-26 14:42 | P.PNIM ---
Subjective Interval history: Patient seen and evaluated this morning at bedside. Patient without acute complaints of chest pain or shortness of breath. EKG reviewed with possible new changes will ask cardiology to give input prior to scheduled hip surgery. Discussed with surgery team this morning. Physical Exam Vital signs: Vital Signs 08/25/18 16:20 08/25/18 16:29 08/25/18 18:20 Temperature 98.8 F Pulse Rate 89 68 81 Respiratory Rate 17 Blood Pressure 184/76 H 146/78 H 154/69 H Pulse Oximetry 98 95 08/25/18 18:31 08/25/18 19:53 08/25/18 20:00 Temperature 99.2 F Pulse Rate 73 69 Respiratory Rate 17 Blood Pressure 130/64 Pulse Oximetry 95 95 08/25/18 20:09 08/25/18 20:12 08/25/18 21:54 Temperature 97.9 F 98.7 F Pulse Rate 70 69 Respiratory Rate 17 16 Blood Pressure 155/65 H 124/60 Pulse Oximetry 94 L 93 L 08/25/18 22:18 08/25/18 22:50 08/25/18 23:29 Temperature 98.7 F 98.7 F 98.4 F Pulse Rate 70 68 70 Respiratory Rate 16 16 17 Blood Pressure 126/61 124/64 120/57 L Pulse Oximetry 93 L 93 L 95 08/26/18 00:00 08/26/18 00:54 08/26/18 02:11 Temperature 96.7 F L Pulse Rate 69 69 Respiratory Rate 16 16 Blood Pressure 130/60 Pulse Oximetry 93 L 08/26/18 04:23 08/26/18 06:00 08/26/18 08:00 Temperature 97.8 F 97.9 F Pulse Rate 70 69 Respiratory Rate 19 20 Blood Pressure 143/68 H 167/72 H Pulse Oximetry 95 94 L 97 08/26/18 12:23 08/26/18 14:00 Temperature Pulse Rate Respiratory Rate Blood Pressure Pulse Oximetry 97 94 L Intake & Output 08/25/18 08/26/18 08/26/18 18:59 06:59 18:59 Intake Total 500 / 500 720 / 720 506 / 506 Output Total 1700 / 1700 875 / 875 315 / 315 Balance -1200 / -1200 -155 / -155 191 / 191 Weight 58.967 kg 62 kg Intake: IV 500 / 500 206 / 206 NS Inj 500 ML @ Wide Open IV. 500 / 500 SIG BOLUS ONE Rx#:[id number] Cyklokapron Inj 600 MG In NS 106 / 106 Inj 100 ML @ 212 mls/hr IV.SIG ONCE ONE Rx#:[id number] Ancef Inj 1 GM In NS Inj 100 ML 100 / 100 @ 100 mls/hr IV.SIG ONCE ONE Rx#:[id number] Oral 720 / 720 Anesthesia Amount 300 / 300 Intake (Blood Product) Amt 0 / 0 Plasma Thawed 5 Day Acda Unit 0 / 0 [id number] Plasma Thawed 5 Day Cp2d Unit 0 / 0 [id number] Output: Estimated Blood Loss 15 / 15 Urine Amount (Catheter) 1700 / 1700 875 / 875 300 / 300 Indwelling Urethral Catheter 1700 / 1700 875 / 875 300 / 300 Other: Date of Last Bowel Movement 08/25/18 08/25/18 Weight On Admission 58.967 kg general: No acute distress HEENT: EOMI Cardiovascular: S1/S2 Respiratory: Clear bilaterally Gastrointestinal: Soft, nontender, nondistended, no guarding or rebound Extremity: Trace pedal edema Urinary Catheter Management Indwelling Urethral Catheter: Cath placed during this visit: yes Reason for continuing: Hourly intake/output Insertion date: 08/25/18 Insertion time: 14:00 Results Labs CBC & Chem 7: 08/25/18 14:00 08/26/18 06:29 Imaging Imaging: Impressions Head CT 08/25/18 13:09 CONCLUSION: Unremarkable study. Assessment and Plan (1) Atrial fibrillation: Code(s): I48.91 - Unspecified atrial fibrillation Status: Acute (2) Hip fracture: Code(s): S72.009A - Fracture of unspecified part of neck of unspecified femur, initial encounter for closed fracture Status: Acute (3) Pacemaker: Code(s): Z95.0 - Presence of cardiac pacemaker Status: Acute Plan Patient is a pleasant 88-year-old female past medical history of atrial fibrillation on Coumadin, pacemaker placement status post bradycardia who presents status post mechanical fall at residence found to have acute subcapital fracture involving the left proximal femur. Orthopedics: Acute subcapital fracture of the left proximal femur Orthopedics consulted and recommendations to be appreciated Orthopedics okay to resume Coumadin Physical therapy Postoperative supplemental oxygen - DuoNeb as needed shortness of breath -Status post hip surgery on 08/26. - cefazolin 1g q6prns s/p OR - pain control: norco 1 tab q4hrs Cardiac: Atrial fibrillation on Coumadin, permanent pacemaker status post bradycardia Monitor on telemetry Echo to rule out any valvular pathology prior to surgery Chest x-ray reviewed and small streak of what could be atelectasis versus fluid. Supplemental oxygen to maintain O2 saturation greater than 92%. Continue Coreg in perioperative period and may continue amlodipine. Hold AMANDA inhibitor and resume in the morning. Continue atorvastatin 20 mg at bedtime - cardiology consulted and recommendation appreciated. - interrogate PPM:medtronic [id number] model [id number] implanted 04/11/17 CODE STATUS: Full code DVT prophylaxis: Coumadin, SCDs Disposition: Medical search unit. Diet: Cardiac. Progress Note: Quality VTE Deep Vein Thrombosis/Pulmonary Embolism Present on Admission: No
[2018-08-26] MEDS ORDERED: *morphine SULFATE 4 MG/ML PERIprocedure ONLY ONE (14:57)
[2018-08-26 15:11] LABS: INR 1.8 Ratio; Prothrombin Time 18.4 sec (9.8-11.6)
[2018-08-26] MEDS: ceFAZolin Inj 1 GM in Sodium Chlor 0.9% Inj 100 ML IV.SIG SCH (20:10)
[2018-08-26] MEDS: Multivitamin/Minerals Therapeutic Tablet PO SCH (20:15)
[2018-08-26] MEDS ORDERED: Influenza (Quadrivalent) Vaccine 0.5 ML Syringe IM ONE (21:00)
[2018-08-26] MEDS ORDERED: Zolpidem Tartrate 5 MG Tablet PO PRN (21:00)
[2018-08-27] MEDS: ceFAZolin Inj 1 GM in Sodium Chlor 0.9% Inj 100 ML IV.SIG SCH ×2 (01:16→07:15)
[2018-08-27 05:48] LABS: INR 2.1 Ratio; Prothrombin Time 21.2 sec (9.8-11.6)
--- NOTE | 2018-08-27 08:54 | ECHRPT ---
Indication: EFFUSION CONCLUSIONS Normal left ventricular size. Wall thickness is normal. The left ventricular systolic function is normal with an estimated ejection fraction in the range of 55-60%. Trace mitral valve regurgitation. There is trace tricuspid valve regurgitation. The estimated pulmonary arterial pressure is 41 mmHg. BP: / HR: Rhythm: PACED MEASUREMENTS (Male / Female) Normal Values Technical Quality:Poor 2D ECHO LV Diastolic Diameter PLAX 4.5 cm 4.2 - 5.9 / 3.9 - 5.3 cm LV Systolic Diameter PLAX 3.2 cm IVS Diastolic Thickness 0.9 cm 0.6 - 1.0 / 0.6 - 0.9 cm LVPW Diastolic Thickness 0.8 cm 0.6 - 1.0 / 0.6 - 0.9 cm LV Relative Wall Thickness 0.4 RV Internal Dim ED PLAX 2.1 cm LVOT Diameter 1.8 cm Aortic Root Diameter 2.7 cm LA Systolic Diameter LX 3.7 cm 3.0 - 4.0 / 2.7 - 3.8 cm DOPPLER TR Peak Velocity 278.0 cm/s TR Peak Gradient 30.9 mmHg Right Atrial Pressure 10.0 mmHg Pulmonary Artery Systolic Pressu 40.9 mmHg Right Ventricular Systolic Press 40.9 mmHg PV Peak Velocity 89.6 cm/s PV Peak Gradient 3.2 mmHg FINDINGS LEFT VENTRICLE Normal left ventricular size. Wall thickness is normal. The left ventricular systolic function is normal with an estimated ejection fraction in the range of 55-60%. LEFT ATRIUM The left atrial size is normal. RIGHT ATRIUM The right atrium is not well visualized. ATRIAL SEPTUM Normal atrial septal thickness without atrial level shunting by limited color doppler interrogation. AORTA The aortic root and proximal ascending aorta are normal in size on limited imaging. MITRAL VALVE Trace mitral valve regurgitation. TRICUSPID VALVE There is trace tricuspid valve regurgitation. The estimated pulmonary arterial pressure is 41 mmHg. Cesar Torres MD (Electronically Signed) Final Date:27 August 2018 08:53
[2018-08-27] MEDS: Carvedilol 12.5 MG Tablet PO SCH ×2 (10:21→21:17)
[2018-08-27] MEDS: Senna/Docusate Sodium 8.6/50 MG Tablet PO SCH ×2 (10:21→21:19)
[2018-08-27] MEDS: amLODIPine 5 MG Tablet PO SCH (10:21)
[2018-08-27] MEDS: Multivitamin/Minerals Therapeutic Tablet PO SCH ×2 (10:21→21:17)
--- NOTE | 2018-08-27 12:00 | ECG ---
Date Performed: 08/25/2018 Time Performed: 16:27:10 PTAGE: 88 years EKG: Since the PREVIOUS TRACING , no significant change noted THERE NOW EVIDENCE OF ATRIAL FLUTTER WITH POSSIIBLE PACED RHYTHM Clinical correlation is recommended PREVIOUS TRACIN08/19/2004 11.22 DOCTOR: Tina Bradley Interpretating Date/Time 08/27/2018 11:59:23
--- NOTE | 2018-08-27 13:03 | P.PNOP ---
Subjective Interval history: Patient OOB in chair with minimal pain to the left hip. Family at bedside. Physical Exam Vital signs: Vital Signs 08/26/18 14:00 08/26/18 14:15 08/26/18 14:30 Temperature 97.3 F L Pulse Rate 69 69 69 Respiratory Rate 15 15 15 Blood Pressure 139/72 135/68 154/70 H Pulse Oximetry 94 L 96 97 08/26/18 14:45 08/26/18 15:00 08/26/18 15:14 Temperature 97.6 F Pulse Rate 69 69 Respiratory Rate 15 16 16 Blood Pressure 159/71 H 157/71 H Pulse Oximetry 92 L 94 L 08/26/18 15:15 08/26/18 15:25 08/26/18 15:30 Temperature 97.6 F Pulse Rate 69 69 Respiratory Rate 16 16 Blood Pressure 145/65 H 137/69 Pulse Oximetry 95 95 95 08/26/18 16:00 08/26/18 19:54 08/26/18 20:02 Temperature 97.9 F 97.9 F Pulse Rate 71 72 72 Respiratory Rate 20 18 Blood Pressure 161/67 H 142/63 H Pulse Oximetry 94 L 95 08/26/18 23:58 08/27/18 00:00 08/27/18 03:06 Temperature 97.4 F L 98 F Pulse Rate 70 70 70 Respiratory Rate 18 17 Blood Pressure 142/65 H 126/60 Pulse Oximetry 96 95 08/27/18 08:00 08/27/18 12:00 Temperature 98.2 F 98.0 F Pulse Rate 70 70 Respiratory Rate 18 16 Blood Pressure 156/70 H 126/60 Pulse Oximetry 95 94 L Intake & Output 08/26/18 08/27/18 08/27/18 18:59 06:59 18:59 Intake Total 506 / 506 1920 / 1920 Output Total 540 / 540 100 / 100 Balance -34 / -34 1820 / 1820 Weight 63.6 kg Intake: IV 206 / 206 1200 / 1200 LR 1000 mL Inj 1,000 ML @ 80 1000 / 1000 mls/hr IV.CONT .[id number] [facility] Rx# :[id number] Cyklokapron Inj 600 MG In NS 106 / 106 Inj 100 ML @ 212 mls/hr IV.SIG ONCE ONE Rx#:[id number] Ancef Inj 1 GM In NS Inj 100 ML 100 / 100 200 / 200 @ 200 mls/hr IV.SIG Q6H [facility] Rx #:[id number] Oral 0 / 0 720 / 720 Anesthesia Amount 300 / 300 Output: Urine 225 / 225 Estimated Blood Loss 15 / 15 Urine Amount (Catheter) 300 / 300 100 / 100 Indwelling Urethral Catheter 300 / 300 100 / 100 Other: # Voids 0 1 Date of Last Bowel Movement 08/25/18 08/25/18 08/25/18 # Bowel Movements 0 Narrative: Left hip does not have significant swelling. Patient's family is at the bedside. Patient is awake alert and oriented x3. Dressing is C/D/I. + NVI. + SILT distally. Calf is soft and nontender. - Urinary Catheter Management Indwelling Urethral Catheter Cath placed during this visit: yes, but has since been removed by the nurse Reason for continuing: Decision to DC catheter Insertion date: 08/25/18 Insertion time: 14:00 Removal date: 08/27/18 Removal time: 04:31 Results - Labs CBC & Chem 7: 08/25/18 14:00 08/26/18 06:29 Laboratory Results - last 24 hr 08/26/18 08/26/18 08/27/18 06:29 14:47 05:16 PT 18.4 H 21.2 H INR 1.8 2.1 Troponin I Less than 0.02 L - Imaging Impressions Hip X-Ray 08/26/18 00:00 CONCLUSION: Successful open reduction and internal fixation of left subcapital fracture as above. Assessment and Plan - Assessment and Plan POD #1: Left hip percutaneous screw fixation 1. TTWB LLE 2. Resume Coumadin for DVT prophylaxis 3. Ice to the left hip PRN 4. Stable per ortho. 5. Plan is for discharge to SNF. 6. Will f/u in the office with Dr. Iraheta or Taj Saldana APRN in 1-2 weeks.
--- NOTE | 2018-08-27 14:50 | P.PNIM ---
Subjective Interval history: Patient seen and evaluated Patient doing well and does not report any numbness or tingling in the legs Orthopedics is cleared patient for discharge Case discussed with case management and patient is being looked at by [facility] but will require and occupational therapy evaluation. Will make sure orders placed INR is 2.1 today and is acceptable Continue Coumadin dosing and monitor clinically Patient denies any chest pain, shortness of breath, palpitations Physical Exam Vital signs: Vital Signs 08/26/18 15:00 08/26/18 15:14 08/26/18 15:15 Temperature 97.6 F 97.6 F Pulse Rate 69 69 Respiratory Rate 16 16 16 Blood Pressure 157/71 H 145/65 H Pulse Oximetry 94 L 95 08/26/18 15:25 08/26/18 15:30 08/26/18 16:00 Temperature 97.9 F Pulse Rate 69 71 Respiratory Rate 16 20 Blood Pressure 137/69 161/67 H Pulse Oximetry 95 95 94 L 08/26/18 19:54 08/26/18 20:02 08/26/18 23:58 Temperature 97.9 F 97.4 F L Pulse Rate 72 72 70 Respiratory Rate 18 18 Blood Pressure 142/63 H 142/65 H Pulse Oximetry 95 96 08/27/18 00:00 08/27/18 03:06 08/27/18 08:00 Temperature 98 F 98.2 F Pulse Rate 70 70 70 Respiratory Rate 17 18 Blood Pressure 126/60 156/70 H Pulse Oximetry 95 95 08/27/18 12:00 Temperature 98.0 F Pulse Rate 70 Respiratory Rate 16 Blood Pressure 126/60 Pulse Oximetry 94 L Intake & Output 08/26/18 08/27/18 08/27/18 18:59 06:59 18:59 Intake Total 506 / 506 1920 / 1920 Output Total 540 / 540 100 / 100 Balance -34 / -34 1820 / 1820 Weight 63.6 kg Intake: IV 206 / 206 1200 / 1200 LR 1000 mL Inj 1,000 ML @ 80 1000 / 1000 mls/hr IV.CONT .[id number] [facility] Rx# :[id number] Cyklokapron Inj 600 MG In NS 106 / 106 Inj 100 ML @ 212 mls/hr IV.SIG ONCE ONE Rx#:[id number] Ancef Inj 1 GM In NS Inj 100 ML 100 / 100 200 / 200 @ 200 mls/hr IV.SIG Q6H [facility] Rx #:[id number] Oral 0 / 0 720 / 720 Anesthesia Amount 300 / 300 Output: Urine 225 / 225 Estimated Blood Loss 15 / 15 Urine Amount (Catheter) 300 / 300 100 / 100 Indwelling Urethral Catheter 300 / 300 100 / 100 Other: # Voids 0 1 Date of Last Bowel Movement 08/25/18 08/25/18 08/25/18 # Bowel Movements 0 General: No acute distress, conversational HEENT: EOMI Cardiovascular: S1/S2 Respiratory: Clear to auscultation Gastroenterology soft, nontender, nondistended Muscular skeletal: Power 5/5 lower extremity Neurology: Sensation intact upper and lower extremity Urinary Catheter Management Indwelling Urethral Catheter: Cath placed during this visit: yes, but has since been removed by the nurse Reason for continuing: Decision to DC catheter Insertion date: 08/25/18 Insertion time: 14:00 Removal date: 08/27/18 Removal time: 04:31 Results Labs CBC & Chem 7: 08/25/18 14:00 08/26/18 06:29 Assessment and Plan (1) Atrial fibrillation: Code(s): I48.91 - Unspecified atrial fibrillation Status: Acute (2) Hip fracture: Code(s): S72.009A - Fracture of unspecified part of neck of unspecified femur, initial encounter for closed fracture Status: Acute (3) Pacemaker: Code(s): Z95.0 - Presence of cardiac pacemaker Status: Acute Plan Patient is a pleasant 88-year-old female past medical history of atrial fibrillation on Coumadin, pacemaker placement status post bradycardia who presents status post mechanical fall at residence found to have acute subcapital fracture involving the left proximal femur. Orthopedics: Acute subcapital fracture of the left proximal femur Orthopedics consulted and recommendations appreciated. Clear for discharge Continue Coumadin. INR 2.1 Physical therapy - recc appreciated Occupational Therapy Postoperative supplemental oxygen - DuoNeb as needed shortness of breath -Status post hip surgery on 08/26. - pain control: norco 1 tab q4hrs Cardiac: Atrial fibrillation on Coumadin, permanent pacemaker status post bradycardia Monitor on telemetry Echo reviewed Chest x-ray reviewed and small streak of what could be atelectasis versus fluid. Resume all medications. Continue atorvastatin 20 mg at bedtime - cardiology consulted and recommendation appreciated. - interrogate PPM:Veodia [id number] model [id number] implanted 04/11/17 We will request nursing assistance with interrogation of Medtronic pacemaker CODE STATUS: Full code DVT prophylaxis: Coumadin, SCDs Disposition: Medical search unit. Diet: Cardiac. Progress Note: Quality VTE Deep Vein Thrombosis/Pulmonary Embolism Present on Admission: No
[2018-08-28 06:30] LABS: INR 1.8 Ratio; Prothrombin Time 18.6 sec (9.8-11.6)
[2018-08-28] MEDS: Multivitamin/Minerals Therapeutic Tablet PO SCH (10:21)
[2018-08-28] MEDS: amLODIPine 5 MG Tablet PO SCH (10:21)
[2018-08-28] MEDS: Carvedilol 12.5 MG Tablet PO SCH (10:22)
[2018-08-28] MEDS: Senna/Docusate Sodium 8.6/50 MG Tablet PO SCH (10:22)
--- NOTE | 2018-08-28 12:23 | P.PNOP ---
Subjective Interval history: The patient is out of bed in chair eating her lunch. The patient reports some stiffness to the left hip but states her pain is gradually improving. Physical Exam Vital signs: Vital Signs 08/27/18 16:00 08/27/18 20:00 08/27/18 21:00 Temperature 98.0 F 97.9 F Pulse Rate 72 71 70 Respiratory Rate 16 18 Blood Pressure 156/65 H 148/67 H Pulse Oximetry 92 L 95 08/27/18 23:55 08/28/18 00:06 08/28/18 03:54 Temperature 97.8 F 97.9 F Pulse Rate 70 69 70 Respiratory Rate 18 17 Blood Pressure 151/70 H 151/75 H Pulse Oximetry 97 95 08/28/18 08:00 08/28/18 09:42 Temperature 97.8 F Pulse Rate 70 Respiratory Rate 16 Blood Pressure 146/65 H Pulse Oximetry 95 95 Intake & Output 08/27/18 08/28/18 08/28/18 18:59 06:59 18:59 Intake Total 1959 Balance 1959 Intake: IV 1000 / 1000 LR 1000 mL Inj 1,000 ML @ 80 1000 / 1000 mls/hr IV.CONT .[id number] [facility] Rx# :[id number] Oral 960 / 960 Other: # Voids 3 Date of Last Bowel Movement 08/25/18 08/27/18 # Bowel Movements 3 Narrative: Left hip does not have significant swelling. Patient's family is at the bedside. Patient is awake alert and oriented x3. Dressing is C/D/I. + NVI. + SILT distally. Calf is soft and nontender. - Urinary Catheter Management Indwelling Urethral Catheter Cath placed during this visit: yes, but has since been removed by the nurse Reason for continuing: Decision to DC catheter Insertion date: 08/25/18 Insertion time: 14:00 Removal date: 08/27/18 Removal time: 04:31 Results - Labs CBC & Chem 7: 08/25/18 14:00 08/26/18 06:29 Laboratory Results - last 24 hr 08/28/18 05:35 PT 18.6 H INR 1.8 Assessment and Plan - Assessment and Plan POD #2: Left hip percutaneous screw fixation 1. TTWB LLE 2. Resume Coumadin for DVT prophylaxis. Today's INR is 1.8. 3. Ice to the left hip PRN 4. Stable per ortho for discharge when medically cleared and arrangements have been made. 5. Plan is for discharge to SNF today or tomorrow. 6. Will f/u in the office with Dr. Iraheta or Taj Saldana APRN in 1-2 weeks.
--- NOTE | 2018-08-28 12:43 | P.DS ---
DS: Providers Date of admission: 08/25/18 15:32 Primary care physician: Marlon Mejia Consults: 08/25/18 15:52 Consult to Orthopedic Surgery Routine Consulting Provider: Anders Iraheta Preferred Mixer Runner:: Anders Iraheta Reason for Consultation: left subcapital hip fracture Notified:: Office Spoke with:: [place] Date Notified:: 08/25/18 Time Notified:: 15:55 Ordering Provider: FERNANDO 08/26/18 09:37 Consult to Cardiology Stat Consulting Provider: Cesar Torres For STAT consult, spoke directly to:: saima Does the patient have a Circulation Tender who follows them?: No Preferred Automatic Shirring Machine Operator:: Cesar Torres Reason for Consultation: t wave change lateral leads. Notified:: Service Spoke with:: ISIS Date Notified:: 08/26/18 Time Notified:: 09:53 Ordering Provider: BRENDA 08/28/18 09:48 HUB Only Consult Order Routine Consulting Provider: [facility] 08/28/18 09:49 HUB Only Consult Order Routine Consulting Provider: Bart Arriaga DS: Diagnosis Discharge Diagnosis (1) Atrial fibrillation: Status: Acute (2) Hip fracture: Status: Acute (3) Pacemaker: Status: Acute DS: Summary Patient is a pleasant 88-year-old female past medical history of atrial fibrillation who presented to [facility] status post mechanical fall found to have a hip fracture on the left. Patient was admitted to the hospital with the following treatments and services were provided in her care. Patient was evaluated by orthopedic surgery and taken for surgical intervention with successful pinning of affected joint. Patient was evaluated by cardiology with clearance for surgical intervention. Patient was evaluated by physical therapy. Coumadin was held in perioperative period and restarted shortly thereafter. Patient clinically improved and stable for discharge to [facility] facility with the following provision for follow-up care. Patient to follow-up outpatient with Dr. Iraheta or Dr. Saldana in 1-2 weeks. Patient to follow-up with primary medical physician and 7-14 days. Patient to continue Coumadin and have INR checked in 48 hours. Patient to resume all other medications. TTWB LLE as per orthopedics. Medically clear and stable for discharge. Ice to the left hip as needed Time Spent with Patient Total time spent providing and/or coordinating discharge services: >30 min Patient is a pleasant 88-year-old female past medical history of atrial fibrillation who presented to [facility] status post mechanical fall found to have a hip fracture on the left. Patient was admitted to the hospital with the following treatments and services were provided in her care. Patient was evaluated by orthopedic surgery and taken for surgical intervention with successful pinning of affected joint. Patient was evaluated by cardiology with clearance for surgical intervention. Patient was evaluated by physical therapy. Coumadin was held in perioperative period and restarted shortly thereafter. Patient clinically improved and stable for discharge to [facility] [place] with the following provision for follow-up care. Patient to follow-up outpatient with Dr. Iraheta or Dr. Saldana in 1-2 weeks. Patient to follow-up with primary medical physician and 7-14 days. Patient to continue Coumadin and have INR checked in 48 hours. Patient to resume all other medications. TTWB LLE as per orthopedics. Medically clear and stable for discharge. Ice to the left hip as needed Quality: VTE Deep Vein Thrombosis/Pulmonary Embolism Present on Admission: No Results Labs on day of discharge: Labs from last 24 hours 08/28/18 05:35 PT 18.6 H INR 1.8 Impressions ITS Impressions Head CT 08/25/18 13:09 CONCLUSION: Unremarkable study. Chest X-Ray 08/25/18 13:52 CONCLUSION: 1. Mild perihilar and bibasilar streakiness is noted consistent with mild pulmonary vascular congestion, mild infiltrates and/or scattered atelectasis. 2. Cardiomegaly. 3. Degenerative changes and scoliosis of the thoracic spine. Hip X-Ray 08/26/18 00:00 CONCLUSION: Successful open reduction and internal fixation of left subcapital fracture as above. Discharge Plan Discharge Disposition Patient Disposition: [facility] Inpatient Discharge Condition Condition: Good Discharge Order Discharge Orders: Discharge Order (Routine); Ordered 08/28/18 Ordered By: Cory Shaw Discharge Details Anticipated Discharge Date: 08/28/18 Discharge Comment: discharge today Physicians Team ED Provider: Freddie Silva ED Midlevel Provider: Camille Huerta Primary Care Provider: Marlon Mejia Attending Provider: Cory Shaw Other Providers: Anders Iraheta ; Cesar Torres ; [facility] ; [employer]xs /Orders / Referrals /Forms Prescriptions: New hydrocodone-acetaminophen [[place]] 5-325 mg Tablet 1 - 2 tab PO Q4-6H Qty: 50 RF: 0 Continue carvedilol 25 mg Tablet 12.5 mg PO BID RF: 0 atorvastatin 20 mg Tablet 20 mg PO DAILY RF: 0 enalapril maleate 20 mg Tablet 20 mg PO BID RF: 0 amlodipine 5 mg Tablet 5 mg PO DAILY RF: 0 warfarin 5 mg Tablet 5 mg PO DAILY RF: 0 Ambulatory Orders / Order Sets / DME: Adjustable Commode 3-in-1 (1 each) (Routine) Location: Determined by Patient Ordered By: Stalin Saldana Walker With Front Wheels (1 each) (Routine) Location: Determined by Patient Ordered By: Stalin Saldana Referrals: Anders Iraheta MD [Physician] - See Instructions (F/U in the office in 1-[address] Iraheta or Taj Saldana APRN) Marlon Mejia M.D. [Primary Care Provider] - See Instructions Discharge Interventions Interventions: Discharge Planning - Case Management Last Done: 08/28/18 08:49 Status ED Status: Left Department
== END 2018-08-28 17:23 | DRG 481 ==
LOC: NEPE 12:14 → NEDA 15:32 → N06 17:31
PROVIDERS: ADMIT Internal Medicine; ATTEND Internal Medicine
DX: W17.89XA Other fall from one level to another, initial encounter; S72.012A Unspecified intracapsular fracture of left femur, initial encounter for closed fracture; Z79.01 Long term (current) use of anticoagulants; Z87.891 Personal history of nicotine dependence; Z90.710 Acquired absence of both cervix and uterus; E11.9 Type 2 diabetes mellitus without complications; M41.9 Scoliosis, unspecified; I48.91 Unspecified atrial fibrillation; R79.1 Abnormal coagulation profile; Z23 Encounter for immunization; Z88.2 Allergy status to sulfonamides; I42.9 Cardiomyopathy, unspecified; I10 Essential (primary) hypertension; I48.92 Unspecified atrial flutter; Z95.0 Presence of cardiac pacemaker; E78.5 Hyperlipidemia, unspecified
CPT/HCPCS: 36430; 51702; 70450; 71010; 71045; 73502; 76000; 80053; 81001; 84484; 85025; 85610; 85730; 86850; 86900; 86901; 86927; 90471; 90658; 90686; 90761; 90774; 90775; 90784; 93005; 93308; 94150; 96361; 96374; 96375; 97110; 97116; 97162; 97167; 99285; C1713; C1769; C8952; C9503; G0008; J0690; J1940; J2270; J2405; J3010; J3370; J7040; J7120; P9017; Q2038